=== PATIENT | female | born 1995 | race Caucasian/White ===

== ENCOUNTER 2024-04-21 10:12 | Inpatient (IN) | payer MEDICAID, SELFPAY ==
[2024-04-21] VITALS (17 sets, daily range): BP systolic 111–140; BP diastolic 71–92; PULSE 55–81; RESP 12–18; TEMP 36.4–36.9; O2SAT 97–100; BMI 23.3
[2024-04-21 11:41] LABS: Amphetamine/Metham Scrn,Ur OB Negative (Negative); Benzoylecgonine Screen, Ur OB Negative (Negative); Opiate Screen,Urine OB Negative (Negative); THC Screen,Urine OB Positive (Negative)
[2024-04-21 11:43] LABS: THC U Confirm* See Sep Rpt
[2024-04-21 11:55] LABS: Basophils % (Auto) 1 % (0-2.5); Eosinophils % (Auto) 1 % (0-10); Hematocrit 27.8 % (36.0-46.0); Hemoglobin 9.2 g/dL (12.0-16.0); Immature Granulocytes % (Auto) 0 % (0-0); Immature Granulocytes Auto 0.02 Thou/mm3 (0.00-0.00); Lymphocytes # (Auto) 1.5 Thou/mm3 (1.0-4.8); Lymphocytes % (Auto) 19 % (10-50); Mean Corpuscular HGB Conc 33.1 g/dl (31.0-37.0); Mean Corpuscular Hemoglobin 27.8 pg (25.0-35.0); Mean Corpuscular Volume 84 fL (80-100); Monocytes # (Auto) 0.4 Thou/mm3 (0.0-0.8); Monocytes % (Auto) 5 % (0-12); Neutrophils # (Auto) 5.7 Thou/mm3 (1.8-7.7); Neutrophils % (Auto) 74 % (37-80); Nucleated Red Blood Cell % 0 /100 WBC (0); Platelet Count 225 Thou/mm3 (140-440); RDW Standard Deviation 41.7 fL (36.4-46.3); Red Blood Count 3.31 Miln/mm3 (4.00-5.20); White Blood Count 7.6 Thou/mm3 (3.6-11.0)
[2024-04-21] MEDS: ceFAZolin/D5W 2 GM IV 2 GM/100 ML BAG IV (12:11)
[2024-04-21] MEDS: FAMOTIDINE INJ 10 MG/ML VIAL 2 ML 20 MG IV (12:12)
[2024-04-21] MEDS: CITRIC ACID/SODIUM CITR 15 ML UDC (BICITRA) 30 ML PO (12:12)
[2024-04-21 12:14] LABS: Anion Gap 6 (7-16); BUN/Creatinine Ratio 8 Ratio (12-20); Blood Urea Nitrogen 5 mg/dL (9-23); Calcium 8.5 mg/dL (8.3-10.6); Carbon Dioxide 22.6 mMol/L (20.0-31.0); Chloride 106 mMol/L (98-107); Creatinine (Component) 0.6 mg/dL (0.6-1.3); Estimated Creatinine Clearance 133.3 mL/min (>60); Glucose 70 mg/dL (74-106); Osmolality,Calculated 265 (275-295); Potassium 3.9 mMol/L (3.4-5.1); Sodium 135 mMol/L (136-145); eGFR > 60 See Note
[2024-04-21 12:35] LABS: Syphilis Nonreactive (Nonreactive)
--- NOTE | 2024-04-21 13:14 | PD.LDDELS ---
Data ([facility]) Data Hx Section: Yes : 5 Para: 3 Term: 3 : 0 : 1 Delivery Data ([facility]) Labor Data ROM Date: 04/21/24 ROM Time: 12:48 Rupture Type: AROM Amniotic Fluid: Clear Delivery Data Labor Onset Stage 1 Date: 04/21/24 Labor Onset Stage 1 Time: 12:49 Labor Onset Stage 2 Date: 04/21/24 Labor Onset Stage 2 Time: 12:49 Delivery Date: 04/21/24 Delivery Time: 12:49 Placenta Delivery Date: 04/21/24 Placenta Delivery Time: 12:50 Delivered by: Dominic Robertson Delivery nurse: Reema Judd Other staff at delivery: Nurse Other staff at delivery: RT Other staff at delivery: Nicole Chavis Other staff at delivery: aura Delivery Method Delivery: Delivery Type: Repeat Anesthesia Type Primary Anesthesia: Spinal Placenta Placenta Delivery: Manual Cord Sample: Cord Blood Obtained [place] Data ([facility]) [place] Data Gender: Male Weight Grams: 3715 1 Minute Total: 9 5 Minute Total: 9
--- NOTE | 2024-04-21 13:15 | ESHP_ITS ---
Documentation for date of: 04/21/24 OB Labor/Induct. HPI History of Present Illness : 4 Para: 3 Term pregnancies: 2 pregnancies: 0 Living children: 2 History of Abortions: Spontaneous and Elective: 0 History of sections: Yes History of : No Gestational Age (weeks): 39 Gestational Age (days): 0 History of present illness: 28-year-old G4, P3 comes at 39 weeks for scheduled repeat . Patient has no care with only 1 visit last week. Dating matching by 35-week ultrasound History of Present Adequate Care: No Labs Labs: Positive: Group Beta Strep and Negative: Hepatitis B, HIV, Chlamydia and Gonorrhea Review of Systems Allergic/Immunologic Comments: Latex Past Medical History Surgical History SURGICAL: Positive Section Past Medical History Comments PMH COMMENT: Denies Meds Home Medications and Allergies Allergies Allergy/AdvReac Type Severity Reaction Status Date / Time latex Allergy Severe BODY SWELLS Verified 04/21/24 10:38 [place] And Derivatives Allergy Mild Rash Verified 04/21/24 10:38 OB Exam Physical Exam Vital signs: Temp Pulse Resp BP Pulse Ox O2 Flow Rate 98 F 81 18 123/76 99 0 04/21/24 13:11 04/21/24 13:11 04/21/24 13:11 04/21/24 13:11 04/21/24 13:11 04/21/24 13:11 Detailed Labor and Delivery Exam Dilation (cm): 0 Baseline heart rate: 140 monitor accelerations: 15x15 monitor decelerations: None termite control technician variability: Moderate (11-25) OB Results Labs 04/21/24 11:25 04/21/24 11:25 Labs: Short CBC 04/21/24 Range/Units 11:25 WBC 7.6 (3.6-11.0) Thou/mm3 Hgb 9.2 L (12.0-16.0) g/dL Hct 27.8 L (36.0-46.0) % Plt Count 225 (140-440) Thou/mm3 BMP 04/21/24 11:25 Sodium 135 L Potassium 3.9 Chloride 106 Carbon Dioxide 22.6 BUN 5 L Creatinine 0.6 Glucose 70 L Calcium 8.5 Impressions Impression: 28-year-old G4, P3 at 39 weeks. Previous section x 3 Limited care OB Assessment & Plan Additional Plan Additional Plan Comment: Routine admission labs. Anemia, 1 unit PRBCs given during the procedure. Patient is n.p.o., consent signed all questions answered
--- NOTE | 2024-04-21 13:18 | PD.GYNPROC ---
Operative Note - DIRECTOR OF NUCLEAR MEDICINE Procedure Date of procedure: 04/21/24 Procedure Performed: Repeat low-transverse Indication: IUP at 39 weeks. Previous section x 3 Pre-Op diagnosis: IUP at 39 weeks. Previous section x 3 Limited care Anemia Post-Op diagnosis: IUP at 39 weeks. Previous section x 3 Anemia Limited care Viable male Anesthesia type: Spinal Procedure description: The patient was taken to the OR, spinal anesthesia was used and was adequate.? 2 g of Ancef were given for infection prophylaxis.? She was prepped and draped in dorsal supine position.? ?A Pfannenstiel skin incision was made with a scalpel 1 g of TXA IV was given Incision was carried down through the fascia with the Bovie Fascia was grasped with Jaden clamps superiorly and inferiorly and dissected with the Bovie. The rectus muscles were then dissected with the Bovie as well Peritoneum was? entered bluntly. The uterine incision was performed and extended bluntly.? Baby was delivered from vertex presentation without any complications. ?Nose and mouth were suctioned on the operative field, cord was then clamped and cut.? The infant was handed off to the nurse.? Cord blood was obtained. IV oxytocin? was initiated to facilitate uterine contractions. The uterus was exteriorized.? The inside of the uterus was then cleaned with a lap sponge to ensure complete removal of the placental membranes.? 1 unit PRBC was started Then the hysterotomy was repaired along the uterine incision with 0 Vicryl in a locked fashion and? then in a running fashion with the same suture. The uterus was inspected in the abdomen and noted to be firm,? the uterine incision was reinspected with excellent hemostasis noted after Surgicel snow was applied and 0.2 mg of Methergine IM were given Muscle layer closed with 2-0 chromic in in a running fashion Fascia layer was closed with an 0 Vicryl in a running fashion Subcutaneous layer was closed with plain gut Skin was close with 4-0 Monocryl Specimen: none Estimated blood loss (ml): 700 Findings: Normal uterus, tubes, ovaries Complications: none Surgical staff Operation Date: 04/21/24 12:45 Case Staff WEB SERVICES ARCHITECT: Damon Garcia RNphotolithographer: Mercedes Rosenberg Diagnosis Problem List Completed Was Problem List Reviewed/Reconciled?: Yes
[2024-04-21] MEDS: KETOROLAC INJ 30 MG/ML VIAL IVP (14:03)
--- NOTE | 2024-04-21 15:40 | PC.NURSE ---
Ace Garcia POLITICAL SCIENCE PROFESSOR notified of pt bradycardia, asymptomatic. No new orders
[2024-04-21] MEDS: IBUPROFEN TAB 400 MG TABLET 800 MG PO (22:28)
[2024-04-21] MEDS: OXYTOCIN in NS 20 units 20 UNIT/1,000 ML BAG 125 UNIT IV (23:05)
[2024-04-22 04:09] VITALS: BP 121/79; PULSE 80; RESP 18; TEMP 36.8; O2SAT 99
[2024-04-22 05:50] LABS: Basophils % (Auto) 0 % (0-2.5); Eosinophils % (Auto) 0 % (0-10); Hematocrit 28.7 % (36.0-46.0); Hemoglobin 9.5 g/dL (12.0-16.0); Immature Granulocytes % (Auto) 0 % (0-0); Immature Granulocytes Auto 0.06 Thou/mm3 (0.00-0.00); Lymphocytes # (Auto) 1.7 Thou/mm3 (1.0-4.8); Lymphocytes % (Auto) 11 % (10-50); Mean Corpuscular HGB Conc 33.1 g/dl (31.0-37.0); Mean Corpuscular Hemoglobin 27.6 pg (25.0-35.0); Mean Corpuscular Volume 83 fL (80-100); Monocytes # (Auto) 0.9 Thou/mm3 (0.0-0.8); Monocytes % (Auto) 6 % (0-12); Neutrophils # (Auto) 12.5 Thou/mm3 (1.8-7.7); Neutrophils % (Auto) 83 % (37-80); Nucleated Red Blood Cell % 0 /100 WBC (0); Platelet Count 205 Thou/mm3 (140-440); RDW Standard Deviation 40.3 fL (36.4-46.3); Red Blood Count 3.44 Miln/mm3 (4.00-5.20); White Blood Count 15.1 Thou/mm3 (3.6-11.0)
--- NOTE | 2024-04-22 08:08 | ESPR_ITS ---
Subjective Subjective Interval history: In the bedside. Afebrile, tolerating p.o., ambulating, voiding, positive flatus Exam Vital Signs Temp Pulse Resp BP Pulse Ox O2 Del Method O2 Flow Rate 98.2 F 80 18 121/79 99 Room Air 0 04/22/24 04:09 04/22/24 04:09 04/22/24 04:09 04/22/24 04:09 04/22/24 04:09 04/22/24 04:09 04/21/24 15:15 Routine Abdominal Exam Comments: Soft, appropriately tender. Uterus firm, below the umbilicus. Incision clean, dry, intact Routine Exam Comments: Lochia similar to menses Routine Extremities Exam Comments: Homans' sign negative Objective Labs 04/22/24 05:18 04/21/24 11:25 Labs: Laboratory Results - last 24 hr 04/21/24 04/21/24 04/22/24 10:30 11:25 05:18 WBC 7.6 15.1 H D RBC 3.31 L 3.44 L Hgb 9.2 L 9.5 L Hct 27.8 L 28.7 L MCV 84 83 MCH 27.8 27.6 MCHC 33.1 33.1 RDW Std Deviation 41.7 40.3 Plt Count 225 205 Neut % (Auto) 74 83 H Lymph % (Auto) 19 11 [place] % (Auto) 5 6 Eos % (Auto) 1 0 Baso % (Auto) 1 0 Neut # (Auto) 5.7 12.5 H Lymph # (Auto) 1.5 1.7 [place] # (Auto) 0.4 0.9 H Eos # (Auto) 0.0 0.0 Baso # (Auto) 0.0 0.0 Immature Gran # (Auto) 0.02 H 0.06 H Absolute Nucleated RBC 0.00 0.00 Immature Gran % 0 0 Nucleated RBC % 0 0 Sodium 135 L Potassium 3.9 Chloride 106 Carbon Dioxide 22.6 Anion Gap 6 L BUN 5 L Creatinine 0.6 Estim Creat Clear Calc 133.3 eGFR > 60 BUN/Creatinine Ratio 8 L Glucose 70 L Calculated Osmolality 265 L Calcium 8.5 Urine Opiates Screen Negative U Amphetamin/Meth Scrn Negative U Cocaine Metab Screen Negative U Marijuana (THC) Screen Positive A Syphilis Serology Nonreactive Blood Type B Positive Antibody Screen NEGATIVE Crossmatch See Detail Blood Bank Wristband ID Yes Assessment & Plan Assessment Comment Assessment comment: 28-year-old status post repeat at term. Postop day 1. Status post 1 unit PRBC IntraOp due to anemia Plan Comment Plan Comment: Routine care. Time Spent With Patient Time: Total time spent is greater than 50% in coordination of care (as documented) at patient's floor/unit and/or counseling patient:
[2024-04-22] MEDS: IBUPROFEN TAB 400 MG TABLET 800 MG PO ×2 (08:11→20:50)
[2024-04-22 09:00] VITALS: BP 119/74; PULSE 69; RESP 18; TEMP 37.1; O2SAT 97
[2024-04-22] MEDS: ENOXAPARIN SOD INJ 40 MG/0.4 ML SYRINGE SC (09:34)
[2024-04-22 12:45] VITALS: BP 118/69; PULSE 71; RESP 20; TEMP 37.1
[2024-04-22] MEDS: HYDROcodone/APAP 5/325 TABLET 1 TAB PO (13:01)
--- NOTE | 2024-04-22 13:22 | PC.SS ---
OPERATIONAL RISK CONSULTANT submitted verbal CWS report to Aida Vega. Written report faxed to [phone]. Copy placed in patient's chart.
--- NOTE | 2024-04-22 13:29 | PC.SS ---
AFFILIATE MARKETING MANAGER conducted bedside contact with the patient to address nursing referral indicating patient?s toxicology report was positive for THC. Chart review indicates that patient test positive for THC during previous admissions on 06-15-21 and during delivery of newborns. AFFILIATE MARKETING MANAGER introduced self, role and basis of contact. Patient confirmed use of THC. Patient reports that THC utilized to address seizure disorder. Patient stated that she inhales and ingests (oil) THC. Patient states that when she uses THC children Elliot 7, Priscila 5 and Luma 3 are not present. Patient confirms storage of THC products outside of children?s access. Patient reports plan for continued use of THC. Discussed need to possibly engage in bottle feeding of due to planned continued use. , Mariza is the patient?s 4th child. Gruver delivered via . Gruver?s toxicology report was negative. FOB is Mariza Worley. Patient resides with FOB and other children. Patient is aligned with SNAP and TANF. Patient not receiving WIC. Patient denies current involvement with CPS. Patient denies history of alcohol use. Patient denies history of domestic violence. OB services provided to the patient through Dr. Robertson. Patient reports consistency with OB appointments. Patient reports no history of mental health. Patient denies history of psychiatric hospitalizations. Patient possesses access to appropriate supplies and equipment, to include; car seat. Members of patient?s support system include FOB, mother and extended family. Gruver is of descent. AFFILIATE MARKETING MANAGER provided patient with community resources to include [facility] and Warm Line information. AFFILIATE MARKETING MANAGER to submit report to S. AFFILIATE MARKETING MANAGER updated bedside nurse.
--- NOTE | 2024-04-22 19:16 | PC.NURSE ---
High Risk referral filled out and faxed to [facility]. Copies filed in both mother's and baby's chart.
[2024-04-22 19:47] VITALS: BP 132/83; PULSE 73; RESP 16; TEMP 36.8; O2SAT 98
[2024-04-23 04:23] VITALS: BP 128/82; PULSE 77; RESP 16; TEMP 36.7; O2SAT 96
[2024-04-23 08:00] VITALS: BP 128/85; PULSE 68; RESP 16; TEMP 36.6; O2SAT 96
[2024-04-23] MEDS: ENOXAPARIN SOD INJ 40 MG/0.4 ML SYRINGE SC (08:19)
--- NOTE | 2024-04-23 09:30 | PC.SS ---
AIR LIFT OPERATOR conducted bedside contact with the patient to discuss nursing referral indicating that the patient scored an 11 on post- depression screening. At bedside with patient was Mariza JIANG. AIR LIFT OPERATOR introduced self, role and basis of visit. Patient gave permission for FOB to be present during discussion. Patient denied history of mental health. Patient denied diagnosis of depression. Patient is not prescribed medication for mood disorders. Patient reports no impairment with daily functioning. Patient denies current intent/plan of SI/HI. Patient described no current presence of depression. Patient interacting appropriately with during discussion (holding, comforting). AIR LIFT OPERATOR provided patient with community resources to address mental health if patient in possession of elevated level of depression. AIR LIFT OPERATOR updated bedside nurse.
--- NOTE | 2024-04-23 10:32 | ESDS_ITS ---
DS: Providers Provider Date of admission: 04/21/24 10:12 Primary care physician: Dominic Robertson MD Admitting Provider: Dominic Robertson MD Attending Provider on Admission: Gabrielle Sousa MD Consults: 04/21/24 13:13 Referral Routine Comment: Attending Provider on DC: Gabrielle Sousa MD Discharging Provider: Gabrielle Sousa MD DS: Diagnosis Problem List Completed Was Problem List Reviewed/Reconciled?: Yes Summary/Hosp Course Brief History: 28-year-old G4, P4, s/p RLTCS , at 39w, here for 48 hours, denies fever, bleeding is slight , breast feeding , tolerating diet without nause avomitting Peripartum Data Procedures: Procedures Operation Date: 04/21/24 12:45 Actual Procedure Side Surgeon p in OB Not Applicable Dominic Robertson MD Status at Discharge Cognitive/behavioral status at discharge: stable Time Spent with Patient Time attestation: Total time spent providing and/or coordinating discharge services: Exam Vital Signs Temp Pulse Resp BP Pulse Ox O2 Del Method O2 Flow Rate 98 F 68 16 128/85 H 96 Room Air 0 04/23/24 08:00 04/23/24 08:00 04/23/24 08:00 04/23/24 08:00 04/23/24 08:00 04/23/24 08:00 04/23/24 08:00 Constitutional Constitutional: no acute distress Routine HEENT Exam Head: Present normocephalic and atraumatic Eye: Present EOMI and PERRL ENT: Present mucous membranes moist Routine Neck Exam Neck: Present supple and trachea midline Routine Respiratory Exam Respiratory: Present chest non-tender, lungs clear, normal breath sounds and no resp distress Routine Cardiovascular Exam Cardiovascular: Present RRR Routine Abdominal Exam Abdominal: Present soft and normoactive bowel sounds Routine Extremities Exam Extremities: Present full ROM Routine Skin Exam Skin: Present intact, dry and warm Routine Neurological Exam Neurological: Present alert, oriented X3 and CN II-XII intact Routine Psychiatric Exam Psychiatric: Present normal affect and normal thought process Discharge Plan Plan Patient Disposition: HOME (Self Care) Prescriptions/Referrals Prescriptions/Med Rec: New acetaminophen-codeine 300-30 mg tablet 1 tab PO Q8H PRN (Reason: pain) Qty: 14 0RF ibuprofen 800 mg tablet 800 mg PO Q8H PRN (Reason: pain) Qty: 30 0RF No Action hydroxyzine HCl 25 mg tablet 25 mg PO QID PRN (Reason: itching) Qty: 30 0RF methylprednisolone [Medrol (Darshan)] 4 mg tablets,dose pack See Rx Instructions .ROUTE .COMPLEX Qty: 21 0RF Rx Instructions: Medrol Dose Darshan use as directed on package label Referrals: Dominic Robertson MD [Primary Care Provider] - Patient/Caregiver Discharge Instructions Education Materials: C Section Dc Print Language: Japanese Stand Alone Forms: Jennifer Award Info., Patient Portal Info Letter Discharge Order Discharge Orders: Discharge (Routine); Ordered 04/23/24 Ordered By: Gabrielle Sousa Planned Discharge Date 04/23/24
--- NOTE | 2024-04-23 10:50 | PC.NURSE ---
patient declined MMR
--- NOTE | 2024-04-23 10:51 | PC.NURSE ---
according to Lamont HERMAN, there is no CWS hold for this patient.
== END 2024-04-23 12:10 | disposition home or self-care (01) | DRG 540 ==
LOC: S4SX 10:15 → S4NX 12:40
PROVIDERS: Admitting Provider Obstetrics & Gynecology; PCP Obstetrics & Gynecology; Visit Provider Student in an Organized Health Care Education/Training Program
PROC: 10D00Z1 Extraction of Products of Conception, Low, Open Approach (ICD-10-PCS; CPT 59514; principal; 2024-04-21 12:30)
DX: O34.211 Maternal care for low transverse scar from previous cesarean delivery (principal); Z37.0 Single live birth; Z3A.39 39 weeks gestation of pregnancy; O99.02 Anemia complicating childbirth; Z91.040 Latex allergy status
CPT/HCPCS: 36415; 80048; 80307; 85025; 86780; 86850; 86900; 86901; 86923; A4649; J0689; J1100; J1650; J1885; J2210; J2250; J2274; J2405; J2590; J3490; P9016; A9270; J0690; J2270

== ENCOUNTER 2024-12-05 01:30 | Emergency (ER) | payer MEDICAID, SELFPAY ==
[2024-12-05 01:32] VITALS: BMI 17.7
--- NOTE | 2024-12-05 02:00 | XR_ITS ---
Examination: Tibia-Fibula, left , 2 views Technique: Tibia-fibula AP lateral 2 views Date and time of exam: December 05, 2024, 0252 hours INDICATIONS: Injury to the lower leg today, lower leg pain FINDINGS: No acute fracture. No dislocation. No dislocation IMPRESSION: No acute fracture
--- NOTE | 2024-12-05 02:24 | PD.EDLOWEX ---
Lower Extremity Injury RME/HPI General Chief Complaint: Extremity Injury, Lower Stated Complaint: INJURY L LEG Time Seen by Provider: 12/05/24 01:58 Arrival date/time: 12/05/24 01:30 RME / HPI RME / HPI Narrative: This section includes all my notes and documentations, including HPI, PE, and ED course. Chidi Owen MD HPI: 28 y/o female presents with LLE pain s/p stepping down hard onto her left foot x approximately 7 hours ago. [place] the [place] No other complaints. ROS: All negative except as documented in HPI. Physical Exam: General: Alert and oriented. No acute distress when remaining still. Eyes: Conjunctivae and lids clear. Lungs: No respiratory distress. Skin: Warm and dry. Neuro: Alert and oriented X 3. Musculoskeletal: Remarkable for equivocal tenderness of the left knee and left lower leg. All other major joints and bones are not tender with no limited ROM. I reviewed all diagnostic test results: My interpretation of the Left Tibia/Fibula x-ray is no acute fracture, official radiology report is pending. At this point, diagnoses include: Left knee sprain. Treatment here included: Ibuprofen 600 mg, Lidocaine Patch 5%, Crutches. Recommended outpatient care. Based on my best medical judgment, made decision no further evaluation or treatment indicated at this time. Patient understands and agrees to the discharge instructions customized and printed, see below. Discharge Instructions from Dr. Owen: --After evaluation, there is no broken bone. --You sprained your knee.? This means small tears to your soft structures, such as [id number]-wlpirmv-innztzrez-cartilage.? --To help the healing process, minimal weight bearing (knee immobilizer and crutches) and elevate above waist level for 3 days as much as possible.?? --Apply ice for 20 minutes every 2-3 hours today and tomorrow.? --Take Ibuprofen 600 mg every 6-8 hours today and tomorrow to help decrease swelling then as needed.? --Most importantly, see a private doctor on 12/07/24 for recheck and further care. If you are not better, you will need more care not available here in the ER--such as MRI imaging, bone scan, physical therapy, and a referral to see a specialist.? To make sure you don't have major tears needing surgery--cannot see big tears on x-rays.?? --Seek immediate medical care with any concerns.?? Chidi Owen MD Related Data Previous Rx's ?Medication ?Instructions ?Recorded hydroxyzine HCl 25 mg tablet 25 mg PO QID PRN itching #30 tabs 08/20/22 methylprednisolone 4 mg tablets in See Rx Instructions .Route 08/20/22 a dose pack (Medrol (Darshan)) .COMPLEX #21 tabs acetaminophen 300 mg-codeine 30 mg 1 tab PO Q8H PRN pain #14 tabs 04/23/24 tablet ibuprofen 800 mg tablet 800 mg PO Q8H PRN pain #30 tabs 04/23/24 Allergies Allergy/AdvReac Type Severity Reaction Status Date / Time latex Allergy Severe BODY SWELLS Verified 12/05/24 01:38 [place] And Derivatives Allergy Mild Rash Verified 12/05/24 01:38 Review of Systems Review of Systems Systems Reviewed: All systems reviewed, normal except as documented Past Medical History Past Medical History NEUROLOGIC: Positive Neurological Disorders and Seizures REPRODUCTIVE: Positive Previous Pregnancies HEMATOLOGIC: Positive Blood Disorders and Anemia PSYCHO/SOCIAL: Positive Anxiety Family History FAMILY HISTORY: Positive Family Cancer (breast cancer great grandmother) Surgical History SURGICAL: Positive Abdominal Surgery and Section Social History SMOKING STATUS: Current every day smoker ED Exam Narrative Physical exam: Refer to [facility] Course Quality Measures none Orders Category Date Time Status Crutches .NOW Care 12/05/24 03:06 Completed XR tibia fibula LT 2V Stat Exams 12/05/24 02:00 Taken Ibuprofen Tab [Motrin Tab] Med 12/05/24 01:59 Discontinued 600 mg PO X1 ONE Lidocaine 5% Patch Med 12/05/24 01:59 Discontinued 2 patch TOP X1 ONE Vital Signs Vital signs: Vital Signs Temperature 97.6 F 12/05/24 02:40 Pulse Rate 77 12/05/24 02:40 Respiratory Rate 19 12/05/24 02:40 Blood Pressure 166/94 H 12/05/24 02:40 Pulse Oximetry (%) 100 12/05/24 02:40 Oxygen Delivery Method Room Air 12/05/24 02:40 Extremity Injury, Lower MDM Narrative MDM Narrative:: Scribe Attestation: I, Maria C Bryson, am scribing for and in the presence of Dr. Owen. Provider Notation: Although this document has been carefully reviewed, there may still be some phonetic and other typographical errors.? These errors are purely grammatical due to imperfections in the software program and should not be construed in any way to? compromise the substance of the patient's medical care during this visit. 28 y/o female presents with LLE pain s/p stepping down hard onto her left foot x approximately 7 hours ago. Patient [place] the [place]. Pain has progressively gotten worse. No other complaints. Patient data External records reviewed:: [facility] previous records (Reviewed prior ED records from 01/31/23. Patient was seen for Abnormal vaginal bleeding.) Clinical information provided by:: patient Social determinants that could affect healthcare access:: none Patient has the following chronic illnesses:: Seizures, Anemia, Anxiety How is presenting disease/condition affected by chronic disease/condition?: uneffected by Evaluation data The following diagnostics were reviewed and interpreted by me:: radiology exam(s) Lab and/or radiology exams considered but not ordered:: None Interpretation Summary: I reviewed all diagnostic test results: My interpretation of the Left Tibia/Fibula x-ray is: NAD. Medications / Prescriptions Medications or Prescriptions considered but not ordered:: None Medication administrations:: Medication Administration History Discontinued Medications Ibuprofen (Ibuprofen Tab 600 Mg Tablet) 600 mg PO X1 ONE Stop: 12/05/24 02:00 Last Admin: 12/05/24 03:01 Dose: 600 mg Documented By: MARILUZ Lidocaine (Lidocaine 5% 1 Patch) 2 patch TOP X1 ONE Stop: 12/05/24 02:00 Last Admin: 12/05/24 03:02 Dose: 2 patch Documented By: MARILUZ Ibuprofen 600 mg, Lidocaine Patch 5%. Consultations Consultation(s) initiated? (list below): No Diagnosis Extremity Injury, Lower Differential Diagnosis: ankle sprain and strain, acute internal derangement of knee, fracture of femur, fracture of hip, puncture wound of foot, fracture of toe and ankle fracture Most likely diagnosis given after review of the tests above:: Left knee sprain Admission Indicated Admission indicated?: not indicated Explain why admission is indicated or not indicated:: With no condition needing emergent intervention, there was no indication for admission. Admission Request Was there a request for admission?: No Disposition Plan Disposition Plan: Discharge Discharge Attestation Discharge Attestation: The patient and all family members were given an opportunity to ask questions and understood the discharge instructions. Discharge instructions specifically effects, indications for sooner follow up or return to the emergency department, and the expected course of current diagnosis. Patient condition: Stable Discharge Plan Plan Patient Disposition: HOME (Self Care) Prescriptions/Referrals Prescriptions/Med Rec: No Action hydroxyzine HCl 25 mg tablet 25 mg PO QID PRN (Reason: itching) Qty: 30 0RF methylprednisolone [Medrol (Darshan)] 4 mg tablets,dose pack See Rx Instructions .ROUTE .COMPLEX Qty: 21 0RF Rx Instructions: Medrol Dose Darshan use as directed on package label acetaminophen-codeine 300-30 mg tablet 1 tab PO Q8H PRN (Reason: pain) Qty: 14 0RF ibuprofen 800 mg tablet 800 mg PO Q8H PRN (Reason: pain) Qty: 30 0RF Referrals: Dajuan Bay MD [Primary Care Provider] - In 1 week Problem List Clinical Impression: Left knee sprain Patient/Caregiver Discharge Instructions Discharge Activity: activity as tolerated Education Materials: ED Knee Sprain Additional Instructions: Discharge Instructions from Dr. Owen: --After evaluation, there is no broken bone. --You sprained your knee.? This means small tears to your soft structures, such as turujnd-wgnhvce-nmsccfgrd-cartilage.? --To help the healing process, minimal weight bearing (knee immobilizer and crutches) and elevate above waist level for 3 days as much as possible.?? --Apply ice for 20 minutes every 2-3 hours today and tomorrow.? --Take Ibuprofen 600 mg every 6-8 hours today and tomorrow to help decrease swelling then as needed.? --Most importantly, see a private doctor on 12/07/24 for recheck and further care. If you are not better, you will need more care not available here in the ER--such as MRI imaging, bone scan, physical therapy, and a referral to see a specialist.? To make sure you don't have major tears needing surgery--cannot see big tears on x-rays.?? --Seek immediate medical care with any concerns.?? Print Language: Maldivian Stand Alone Forms: Jennifer Award Info., Patient Portal Info Letter
[2024-12-05 02:40] VITALS: BP 166/94; PULSE 77; RESP 19; TEMP 36.4; O2SAT 100
[2024-12-05] MEDS: IBUPROFEN TAB 600 MG TABLET PO (03:01)
[2024-12-05] MEDS: LIDOCAINE 5% 1 PATCH 2 PATCH TOP (03:02)
== END 2024-12-05 03:50 | disposition home or self-care (01) ==
PROVIDERS: Emergency Provider Emergency Medicine; PCP Family Medicine
DX: S83.92XA Sprain of unspecified site of left knee, initial encounter (principal)
CPT/HCPCS: 73590; 99283; J3490; A9270